=== PATIENT | female | born 1970 | race Caucasian/White ===

== ENCOUNTER 2024-02-27 06:07 | Day surgery (SDC) | payer BC, MEDICAID, SELFPAY ==
[2024-02-27] VITALS (9 sets, daily range): BP systolic 121–169; BP diastolic 65–103; PULSE 78–117; RESP 12–18; TEMP 36.5–37; O2SAT 93–100; BMI 31.1
[2024-02-27] MEDS: Lactated Ringers 1,000 ML 15 ML IV ×2 (06:53→12:25)
[2024-02-27] MEDS: Cefazolin 2 GM in 0.9% Normal Saline (100mL Bag) 100 ML IV (07:28)
--- NOTE | 2024-02-27 07:30 | BR_PTH ---
PATIENT: CINDI DRISCOLL LOC: [facility] – [place] U#:[id number] AGE/SX: 53/F ROOM: RE02/27/[address]: Dr. Cherelle Garber MD : [id number] BED: DIS: 02/27/2024 SPEC #: [id number] RECD: 02/27/24 11:49 STATUS: DAT CORTÉS #: [id number] JOSSUE: 02/27/24 07:[address]: Cherelle Garber DEPT: SURGICAL PATHOLOGY RECD BY: Carmen Oreilly Tissues: A - Right breast, NOS B - Left breast, NOS Procedures: Surgery Specimen Level IV HEADER OPERATION: Bilateral breast reduction PRE-OP DIAGNOSIS: Chronic back pain, Breast hypertrophy, Breast ptosis TISSUE SUBMITTED: A- Right breast tissue, B- Left breast tissue MICROSCOPIC DIAGNOSIS A. Right breast tissue, breast reduction mammoplasty: Benign breast tissue (126gm). Skin, no pathologic diagnosis. B. Left breast tissue, breast reduction mammoplasty: Benign breast tissue (122gm). Skin, no pathologic diagnosis. / 03/02/24 MICROSCOPIC DESCRIPTION Slides are reviewed. GROSS DESCRIPTION A. Received in fixative is one container designated Right breast tissue. The specimen consists of multiple irregular fragments of yellow fibrofatty tissue ranging in size from <0.1 to 7.0cm in greatest dimension. The larger fragment contains unremarkable skin. Serial sections do not reveal mass lesions. Several of the larger fragments contain adherent pink-nair skin with no skin lesions. The fragments weigh in aggregate 126 gm. Serial sections reveal yellow fatty tissue interrupted occasionally by dense white fibrous streaks. No distinct mass lesions are identified. Property Man sections are submitted in five cassettes. B. Received in fixative is one container designated Left breast tissue. The specimen consists of multiple irregular fragments of yellow-nair fibrofatty tissue. Several of the larger fragments contain adherent pink-nair skin with no skin lesions. The fragments range in size from 0.5 to 9.0 cm and in aggregate weigh 122 gm. Serial sections reveal yellow fatty tissue interrupted occasionally by dense white fibrous streaks. No distinct mass lesions are identified. Property Man sections are submitted in five cassettes. / 02/27/24 TC: 5
[2024-02-27] MEDS: Gentamicin 80 MG/2 ML Vial (08:23)
[2024-02-27] MEDS: Methylene Blue 1% 100 MG/10 ML VIAL (08:23)
[2024-02-27] MEDS: EPINEPHrine Nasal 0.1% 30 ML Bottle OPERA.SITE (08:24)
[2024-02-27] MEDS: Bupivacaine 0.25% 30 ML Vial (11:43)
--- NOTE | 2024-02-27 12:02 | PCM.HP.BLA ---
History and Physical Date of Admission: 02/27/24 The patient is examined and there are no changes to the H&P dated 02/20/24. Informed consent was obtained. The patient is here for bilateral breast reduction. No guarantees were made as to the final size. She is marked in the preop holding area prior to surgery. Assessment & Plan Assessment/Plan (1) Breast hypertrophy: (2) Breast ptosis: (3) Chronic back pain: PLAN: Plan Patient for bilateral breast reduction
--- NOTE | 2024-02-27 12:03 | DCINST_ITS ---
Discharge Instructions Dressing / Incision Additional Dressing/Incision Instructions:: Use the incentive spirometer 5-6 times a day. Follow the instructions given in the office. Follow Up Care Please Follow Up With: Cherelle Garber MD When: In 1 week Test Results: Test results from this visit will be discussed in further detail at your follow- up appointment, if applicable. Discharge Plan Admission Attending Provider: Cherelle Garber Primary Care Provider: ALEXEY LU Discharge Orders/Prescriptions Prescriptions: No Action baclofen 20 mg tablet 40 mg PO BID levothyroxine 100 mcg capsule 100 mcg PO DAILY ibuprofen 800 mg tablet 800 mg PO TID valacyclovir 1 gram tablet 1,000 mg PO DAILY PRN PRN (Reason: cold sores) Claritin RediTabs 5 mg tablet,disintegrating 10 mg PO DAILY alendronate 70 mg tablet 70 mg PO FR cholecalciferol (vitamin D3) 10 mcg (400 unit) capsule 10 mcg PO DAILY cephalexin 500 mg capsule 500 mg PO BID Qty: 14 0RF venlafaxine [Effexor XR] 75 mg capsule,extended release 24hr 150 mg PO DAILY Wegovy 0.5 mg/0.5 mL pen injector 0.5 mg subcut FR Rx Instructions: administer weeks 5 through 8 of therapy calcium gluconate 60 mg calcium (650 mg) tablet 120 mg PO DAILY hydroxyzine HCl 25 mg tablet 25 mg PO DAILY PRN PRN (Reason: anxiety) magnesium citrate 100 mg capsule 100 mg PO DAILY albuterol sulfate 90 mcg/actuation HFA aerosol inhaler 1 puff inhalation Q6H PRN PRN (Reason: allergy symptoms) gabapentin 600 mg tablet 600 mg PO BID diphenhydramine HCl [Allergy (diphenhydramine)] 25 mg tablet 25 mg PO Q8H PRN (Reason: allergy symptoms) docusate sodium [Colace] 100 mg capsule 300 mg PO QHS Fiber Gummies 2 gram tablet,chewable 4 g PO QHS Women's Multivitamin Collagen 200 mcg- 25 mg tablet,chewable 2 tab PO DAILY Centrum Minis Women 50 Plus 4 mg iron-200 mcg-25 mcg tablet 1 tab PO DAILY Referrals / Follow Up: ALEXEY LU [Other] Disposition Disposition (needs filled in before D/C Order can be placed): Home, Self Care
--- NOTE | 2024-02-27 12:07 | OP.PCM_ITS ---
Problems Associated Problem List Diagnoses (1) Chronic back pain: (2) Breast hypertrophy: Report of Operation Date of Procedure: 02/27/24 Pre-Operative Diagnosis: Breast hypertrophy; chronic back pain Post-Operative Diagnosis: Same Surgery/Procedure Performed:: Bilateral breast reduction (right?126 g; left?122 g) Surgeon: Cherelle Garber real estate utilization officer: MARIAN ERWINdirector [place] Type of Anesthesia: General Specimen's removed: Bilateral breast tissue Drains: None Estimated Blood Loss (mL): 25 cc Description of Procedure: The patient presents for bilateral breast reduction. The procedure been thoroughly reviewed with the patient. Potential risk and complications have been reviewed and informed consent has been obtained. The patient is marked in the preop holding area prior to surgery. The patient is brought to the operating room and placed under general anesthesia in the supine position. Care is taken to pad all pressure points, apply sequential compression stockings, Bhatia catheter, and a warming blanket. The breast and chest are prepped and draped in the usual sterile fashion. We initially began with incising the premarked incisions. The pedicle was then de- epithelialized leaving the nipple areola intact. Following this, the medial and lateral inferior aspects of the breast removed using argon coagulation. Following this, the upper flap is dissected cephalad maintaining at least 2 cm in thickness. The pedicle is then trimmed in order to allow it to comfortably sit beneath the upper flap. All tissue was passed off the operative field to be weighed and sent to pathology. The wound was then irrigated with antibiotic solution and checked for hemostasis which is controlled with cautery. The pedicle is then tacked to the chest wall using a few Vicryl sutures. The breast is then infolded and tacked together using silk suture and skin clips. When a satisfactory size and shape is noted, would begin wound closure. A few Vicryl sutures are initially placed in the inframammary crease area. Following this, a running strata fix suture is used to approximate the wound edges in 3 layers. The skin edges are approximated with a running subcuticular suture. Approximately 4 cm from the inframammary crease, the nipple areola is brought out through an opening. It is initially tacked in place with interrupted nylon suture. Following this, further refinement of the closure was done with a subcuticular strata fix suture. The identical procedure was performed on the opposite side. 1/4% plain Marcaine is injected along the incisions. The wounds are dressed with Xeroform and fluff gauze. She is placed in a surgery bra. She tolerated the procedure well and was taken to the recovery area in an awakening in stable condition. Needle and sponge counts are correct. Complications None Admit VTE Documentation VTE Mechan Device Prophylaxis: SCD's
[2024-02-27] MEDS: Acetaminophen 500 MG Tablet 1000 MG PO (14:13)
== END 2024-02-27 16:12 | disposition home or self-care (01) ==
LOC: SDC 06:09 → AC 06:14
PROVIDERS: Referring Provider Plastic Surgery; Visit Provider Plastic Surgery
PROC: 0H0U0ZZ Alteration of Left Breast, Open Approach (ICD-10-PCS; CPT 19318; principal; 2024-02-27 07:15)
DX: N62 Hypertrophy of breast (principal); N64.81 Ptosis of breast; M54.9 Dorsalgia, unspecified; G89.29 Other chronic pain; I10 Essential (primary) hypertension; Z79.899 Other long term (current) drug therapy
CPT/HCPCS: 19318; 00402; 88305; J7120; J2405